=== PATIENT | male | born 1960 | race Caucasian/White ===

== ENCOUNTER 2021-11-01 14:30 | Outpatient (RCR) | payer BC, SELFPAY | END 2022-01-09 11:24 | disposition home or self-care (01) | PROVIDERS: PCP Family Medicine; Visit Provider Emergency Medicine | DX: M75.40 Impingement syndrome of unspecified shoulder (principal); Z51.89 Encounter for other specified aftercare | CPT/HCPCS: 97110; 97140; 97161 ==

== ENCOUNTER 2022-03-02 16:45 | Outpatient (RCR) | payer OTHER, BC, SELFPAY | END 2022-05-05 10:14 | disposition home or self-care (01) | PROVIDERS: PCP Family Medicine; Visit Provider Emergency Medicine | DX: M75.40 Impingement syndrome of unspecified shoulder (principal); Z51.89 Encounter for other specified aftercare | CPT/HCPCS: 97110; 97140; 97161; 97164 ==

== ENCOUNTER 2022-04-12 06:15 | Day surgery (SDC) | payer OTHER, BC, SELFPAY ==
[2022-04-12] VITALS (15 sets, daily range): BP systolic 103–121; BP diastolic 57–76; PULSE 63–69; RESP 16–18; TEMP 36.1–36.9; O2SAT 93–97; BMI 28.7
--- NOTE | 2022-04-12 06:37 | SUR.PREOP ---
Patient provided home covid negative results to RN.
[2022-04-12] MEDS: LACTATED RINGERS 1000 ML 1,000 ML 100 ML IV (07:00)
[2022-04-12] MEDS: SODIUM CHLORIDE 0.9 % (FLUSH) 10 ML SYRINGE IVF (07:00)
[2022-04-12] MEDS: EPINEPHrine 1 MG in SODIUM CHLORIDE IRRIG SOLUTION 3,000 ML 3001 MG IRRIGATION ×3 (07:10→07:50)
--- NOTE | 2022-04-12 07:25 | SUR.PREOP ---
TIME?OUT:?0729 PT/RN/MDA?VERIFICATION?OF?SURGICAL?SITE,?PROCEDURE,?AND?CONSENT OBTAINED?PRIOR?TO?INVASIVE?PROCEDURE.
[2022-04-12] MEDS: MIDAZOLAM HCL 1 MG/ML inj IVP (07:29)
[2022-04-12] MEDS: fentaNYL 100 MCG/2 ML inj IVP (07:29)
[2022-04-12] MEDS: CEFAZOLIN 2 GM in 0.9 % SODIUM CHLORIDE Mini-bag 100 ML IVPB (08:00)
--- NOTE | 2022-04-12 08:28 | W.ANESCHARGE ---
Anesthesia Charges Start Date/Time Anesthesia Start Date: 04/12/22 Anesthesia Start Time: 07:40 Stop Date/Time Anesthesia Stop Date: 04/12/22 Anesthesia Stop Time: 09:21
--- NOTE | 2022-04-12 08:59 | PM.ORPRC ---
Procedure Note Date of procedure: 04/12/22 Procedure: PREOPERATIVE DIAGNOSES: 1. Left shoulder rotator cuff tear. 2. Left shoulder subacromial impingement syndrome. POSTOPERATIVE DIAGNOSES: 1. Left shoulder rotator cuff tear - supraspinatus full-thickness far anterior portion, mild retraction 2. Left shoulder subacromial impingement syndrome. 3. Left shoulder anterior and superior labral tearing NAME OF OPERATION: 1. Left shoulder arthroscopic rotator cuff repair. 2. Left shoulder arthroscopic limited glenohumeral debridement 3. Left shoulder arthroscopic bursectomy, subacromial decompression/partial acromioplasty. SURGEON: Piyush Gordon MD [employer] CHIEF CLERK: Guillermo DAILY. Of note, a skilled assistant manager retail was critical for this case to aide in patient positioning, suture manipulation, arm positioning, instrument positioning, and closure. ANESTHESIA: General plus preoperative supraclavicular block. EBL: Less than 25 mL IMPLANTS: Arthrex 4.75 mm BioComposite SwiveLock suture anchor (x2) COMPLICATIONS: None evident INDICATIONS: The patient is a pleasant, 62-year-old male who has experienced left shoulder pain that has been increasing in recent time. Physical exam and imaging were consistent with a rotator cuff tear. Given their findings, as well as the weakness and pain, and inadequate response to nonoperative management, recommendation was made for surgery. FINDINGS: Exam under anesthesia revealed stable shoulder with excellent range of motion. The diagnostic arthroscopy revealed healthy chondral surfaces of the glenohumeral joint. The Subscapularis tendon was intact and with a healthy attachment. The long head of the biceps tendon was intact. The superior rotator cuff tendon was found to be torn full thickness at the anterior margin measuring approximately 12 mm in greatest dimension with minimal retraction. The labrum was torn in the anterior and superior aspects. The biceps anchor was still appropriate/strong. No loose bodies were identified within the pouch or subscapularis recess. PROCEDURE: Following a thorough discussion of risks, benefits, and alternatives, consent was obtained and the left shoulder was marked. The patient was brought to the operating room and placed supine on the operating table. Induction of anesthesia was completed after preoperative supraclavicular block was administered in preop holding. Appropriate time out was performed identifying proper patient, site, and procedure. 2 g IV Ancef was administered within 1 hour of incision preoperatively. The left upper extremity was prepped and draped in the appropriate sterile fashion using ChloraPrep prep. This was after the patient was positioned in the beach chair with their head in neutral alignment and all bony prominences well padded. The shoulder was insufflated with 20mL of normal saline via an 18g spinal needle from a posterior approach. An 11 blade skin incision allowed a blunt trochar to be inserted and diagnostic arthroscopy to be performed with the findings as noted above. An anterior portal was established with an outside in technique. This allowed the probe to be inserted and confirm the diagnostic arthroscopic findings. The shaver was then inserted and allowed debridement of the anterior and superior labrum. The biceps was probed and found to be stable. Following this, the upper border subscapularis was probed and found to be intact and stable. Thereafter, the subacromial space was entered. Here, a complete bursectomy and partial acromioplasty/subacromial decompression was performed with a combination of radiofrequency ablator, the shaver, and a 5.5 mm bur. Further inspection of the supraspinatus and infraspinatus rotator cuff was performed. This identified the tear as noted above. The margins of the tear were debrided, and the greater tuberosity was debrided with a combination of the apollo cautery, shaver, and bur on reverse setting. After gentle decortication, in medial 4.75 mm anchor was placed with suture tape pre loaded through the eyelet. The SutureTape tails were passed in a horizontal mattress fashion with the scorpion needle. These were brought to a single anchor further laterally with excellent reapproximation and securing of the rotator cuff. Prior to anchor trackless trolley driver removal, the eyelet sutures were tugged on for each anchor and found that the anchor had excellent stability within the bone. The shoulder was placed through range of motion and found to be stable. The rotator cuff was re-probed and found to be stable. Instruments were removed. Excess fluid was drained, closure performed with 4-0 Monocryl and Steri-Strips. Dressings were applied. Sling was applied. The patient was awoken from anesthesia and transferred to the PACU in stable condition. A skilled assistant manager retail was critical for this case to aid in patient positioning, limb positioning, skill to manipulate arthroscopic instruments and camera, suture management, patient safety, and closure. PLAN: 1. Elbow, forearm, wrist and digit range of motion of operative extremity as tolerated. 2. Encouraged ice. 3. Percocet for pain as needed. 4. Sling at all times except for ROM and showering. 5. Follow up with PA visit in 1-2 weeks for wound check. Initiate physical therapy following that visit for passive range of motion. Initiate active assisted range of motion at 3 weeks. May do pendulums now.
--- NOTE | 2022-04-12 09:15 | W.PM.NB ---
Nerve Block Nerve Block Time Seen by Provider: 07:37 Date Seen: 04/12/22 Type of block requested by surgeon for post-operative analgesia: supraclavicular Side: left Time out performed: Yes Verification of patient name: Yes Verification of date of : Yes Site marking: site marked Name of person performing procedure: Jeremy Continuous monitoring Was continuous monitoring of O2 sat, B/P, cardiac monitor technician, recorded every 15 minutes?: Yes Procedure Checklist: sterile prep, needles and gloves Ultrasound guided. Images saved: Yes Medications given in 5ml increments after negative aspiration: Ropivicaine %: 0.5 mL: 20 Needle gauge: 22 Decadron (mg): 10 Precedex (mcg): 25 Patient tolerated procedure well: Yes Block Charges Block Charge (with Pro Fee): Brachial Plexus Use of Ultrasound Machine for Block: Yes- US Guidance/pain block
--- NOTE | 2022-04-12 09:15 | W.ANESCHARGE ---
Anesthesia Charges Start Date/Time Anesthesia Start Date: 04/12/22 Anesthesia Start Time: 07:40 Stop Date/Time Anesthesia Stop Date: 04/12/22 Anesthesia Stop Time: 09:21
== END 2022-04-12 11:40 | disposition home or self-care (01) ==
PROVIDERS: PCP Family Medicine; Visit Provider Orthopaedic Surgery Sports Medicine
PROC: (CPT 29805; principal; 2022-04-12 08:00)
DX: M75.102 Unspecified rotator cuff tear or rupture of left shoulder, not specified as traumatic (principal); M75.42 Impingement syndrome of left shoulder; S43.432A Superior glenoid labrum lesion of left shoulder, initial encounter; G89.18 Other acute postprocedural pain
CPT/HCPCS: 29827; 29826; 29822; 01630; 64415; 76942; C1713; J0171; J0330; J0690; J1100; J1170; J2250; J2405; J2704; J2795; J3010; J7120; L3670

== ENCOUNTER 2022-08-22 16:00 | Outpatient (RCR) | payer OTHER, BC, SELFPAY | END 2022-11-15 10:24 | disposition home or self-care (01) | PROVIDERS: PCP Family Medicine; Visit Provider Orthopaedic Surgery Sports Medicine | DX: Z98.890 Other specified postprocedural states (principal); Z51.89 Encounter for other specified aftercare | CPT/HCPCS: 97032; 97110; 97140; 97161; 97530 ==

== ENCOUNTER 2022-10-26 09:30 | Outpatient (CLI) | payer BC, SELFPAY | END 2022-10-26 09:31 | disposition home or self-care (01) | LOC: NFLDREF 10-27 09:05 | PROVIDERS: PCP Family Medicine; Referring Provider Family Medicine; Visit Provider Family Medicine | DX: Z00.00 Encounter for general adult medical examination without abnormal findings (principal); L98.9 Disorder of the skin and subcutaneous tissue, unspecified; E78.00 Pure hypercholesterolemia, unspecified; Z12.5 Encounter for screening for malignant neoplasm of prostate | CPT/HCPCS: 80053; 80061; 84153 ==

== ENCOUNTER 2023-01-22 11:18 | Outpatient (CLI) | payer BC, SELFPAY | END 2023-01-22 11:19 | disposition home or self-care (01) | PROVIDERS: PCP Family Medicine; Visit Provider Family Medicine | DX: Z01.818 Encounter for other preprocedural examination (principal); E78.00 Pure hypercholesterolemia, unspecified | CPT/HCPCS: 80048 ==

== ENCOUNTER 2024-04-01 08:02 | Outpatient (CLI) | payer BC, SELFPAY | END 2024-04-01 08:03 | disposition home or self-care (01) | PROVIDERS: PCP Family Medicine; Visit Provider Family Medicine | DX: E78.00 Pure hypercholesterolemia, unspecified (principal); K21.9 Gastro-esophageal reflux disease without esophagitis; Z12.5 Encounter for screening for malignant neoplasm of prostate | CPT/HCPCS: 80053; 80061; G0103 ==

== ENCOUNTER 2024-09-23 09:52 | Outpatient (CLI) | payer BC, SELFPAY ==
--- NOTE | 2024-09-23 11:27 | P.ANES_ITS ---
Anesthesia Charges Start Date/Time Anesthesia Start Date: 09/23/24 Anesthesia Start Time: 10:45 Stop Date/Time Anesthesia Stop Date: 09/23/24 Anesthesia Stop Time: 11:23 Coding CPT Codes CPT Codes: ANES UPR LWR GI NDSC PX - 77882 ([id number]) P2 - PATIENT W/MILD SYST DISEASE, QZ - APRON TRIMMER SVC W/O APPLICATIONS PROGRAMMER BY
--- NOTE | 2024-09-23 11:27 | W.ANESCHARGE ---
Anesthesia Charges Start Date/Time Anesthesia Start Date: 09/23/24 Anesthesia Start Time: 10:45 Stop Date/Time Anesthesia Stop Date: 09/23/24 Anesthesia Stop Time: 11:23 Coding CPT Codes CPT Codes: ANES UPR LWR GI NDSC PX - 31031 ([id number]) P2 - PATIENT W/MILD SYST DISEASE, QZ - PRESIDENT SVC W/O SUSTAINABILITY OFFICER BY
[2024-09-23 14:11] LABS: Creatinine* 1.2 mg/dL (0.5-1.5); Estimated Glomerular Filt Rate 68 ml/min
--- NOTE | 2024-09-23 14:30 | CRLHL7_ITS ---
For Patients: As a result of the Century Cures Act, medical imaging exams and procedure reports are released immediately into your electronic medical record. You may view this report before your referring provider. If you have questions, please contact your health care provider. INDICATION: Other diseases of stomach and duodenum. TECHNIQUE: CT abdomen and pelvis acquired with 107 mL Isovue 370 IV contrast. COMPARISON: None available. FINDINGS: Lower chest: No focal consolidation. Liver: No suspicious focal hepatic lesion. Gallbladder and bile ducts: Unremarkable. Pancreas: Unremarkable. Spleen: Unremarkable. Adrenal glands: Unremarkable. Kidneys: Kidneys enhance symmetrically, without hydronephrosis. Indeterminate 1.0 cm hypodense lesion in the posterior lower pole of the left kidney (series 2, image 60). Additional too small to characterize hypodense bilateral renal lesions are noted. Retroperitoneum: No lymphadenopathy. Bowel and mesentery: Scattered colonic diverticulosis, without evidence of acute diverticulitis. 1.7 x 1.2 cm lipomatous lesion at the wall of the pylorus (series 2, image 38). Bladder: Unremarkable for degree of distention. Reproductive organs: Significant prostatomegaly. Few enhancing nodules in the transition zone. Pelvic lymph nodes: No lymphadenopathy. Vessels: Scattered atherosclerotic plaque. Abdominal wall: No acute abdominal wall abnormality. Bones: Multilevel degenerative changes of the spine. No suspicious/aggressive focal osseous lesion. IMPRESSION: 1. 1.7 x 1.2 cm lipomatous lesion within the wall of the pylorus. 2. Indeterminate 1.0 cm hypodense lesion in the posterior lower pole of the left kidney. Recommend further evaluation with renal protocol CT or MRI. 3. Prostatomegaly, with few enhancing nodules in the transition zone. Recommend correlation with serum PSA. Please note that all CT scans at this facility use dose modulation, iterative reconstruction, and/or weight-based dosing when appropriate to reduce radiation dose to as low as reasonably achievable. Dictated by Antonio Sifuentes MD @ 09/26/2024 1:14:51 PM (Electronically Signed)
== END 2024-09-23 09:53 | disposition home or self-care (01) ==
PROVIDERS: PCP Family Medicine; Visit Provider Surgery
DX: Z12.11 Encounter for screening for malignant neoplasm of colon (principal); Z86.0100 Personal history of colon polyps, unspecified; D12.2 Benign neoplasm of ascending colon; D12.3 Benign neoplasm of transverse colon; K44.9 Diaphragmatic hernia without obstruction or gangrene; K21.9 Gastro-esophageal reflux disease without esophagitis; K31.7 Polyp of stomach and duodenum; D17.5 Benign lipomatous neoplasm of intra-abdominal organs; K31.89 Other diseases of stomach and duodenum
CPT/HCPCS: 00813; 36415; 43239; 45385; 74177; 82565; 88302; 88305; J2704; J3010; Q9967

== ENCOUNTER 2024-10-10 07:06 | Outpatient (CLI) | payer BC, SELFPAY ==
--- NOTE | 2024-10-10 07:15 | CRLHL7_ITS ---
For Patients: As a result of the Cures Act, medical imaging exams and procedure reports are released immediately into your electronic medical record. You may view this report before your referring provider. If you have questions, please contact your health care provider. CLINICAL HISTORY: Renal lesion lower pole left kidney COMPARISON: CT 09/23/2024 TECHNIQUE: Valiente scale and color Doppler images were acquired of the kidneys and urinary bladder. FINDINGS: Lower pole lesion on recent CT is not appreciated on ultrasound. This may be due to overlying shadowing related to bowel gas. There is a simple cyst within the upper pole of the left kidney which measures 7 x 8 x 6 millimeters. No hydronephrosis. The right kidney measures 10.9cm in length and the left kidney measures 10.5cm in length. The renal cortex appears of normal thickness. The urinary bladder appears normal. Color Doppler images reveal a normal appearance of both ureteral jets. There is no evidence of bladder calculi or diverticula. Prevoid bladder volume 105 cc. Postvoid bladder volume 20 cc. IMPRESSION: The lesion within the lower pole of the left kidney on recent CT is not appreciated on ultrasound. Recommendations as before. Dictated by Isidro Cotton MD @ 10/10/2024 8:16:45 AM (Electronically Signed)
== END 2024-10-10 07:07 | disposition home or self-care (01) ==
LOC: US 07:08
PROVIDERS: PCP Family Medicine; Visit Provider Family Medicine
DX: N28.89 Other specified disorders of kidney and ureter (principal)
CPT/HCPCS: 76770

== ENCOUNTER 2024-10-10 07:55 | Outpatient (CLI) | payer BC, SELFPAY | END 2024-10-10 07:56 | disposition home or self-care (01) | LOC: NFLDREF 10-14 17:32 | PROVIDERS: PCP Family Medicine; Referring Provider Family Medicine; Visit Provider Family Medicine | DX: N42.9 Disorder of prostate, unspecified (principal) | CPT/HCPCS: 84153; 84154 ==

== ENCOUNTER 2024-10-29 14:03 | Outpatient (CLI) | payer BC, SELFPAY ==
--- NOTE | 2024-10-29 14:00 | CRLHL7_ITS ---
For Patients: As a result of the Cures Act, medical imaging exams and procedure reports are released immediately into your electronic medical record. You may view this report before your referring provider. If you have questions, please contact your health care provider. INDICATION: Indeterminate lesion left kidney seen on the previous CT 09/23/2024; further assessment. COMPARISON: CT abdomen and pelvis with and without contrast September 23, 2024. Ultrasound examination of the kidneys 10/10/2024 TECHNIQUE: CT abdomen without intravenous contrast; CT abdomen with intravenous contrast during the arterial and venous phase imaging; coronal and sagittal reformats; maximum intensity projections; contrast was injected IV. FINDINGS: A 1.2 x 1 cm lesion identified in the interpolar region posterior aspect left kidney with a defect in the renal cortex on the unenhanced study, hypo enhancing lesion on the post-contrast imaging with 13 Hounsfield unit enhancement from the precontrast study. Smaller cortical cysts upper pole left kidney and lower pole right kidney. Mild diffuse fatty infiltration of the liver. No focal hepatic or splenic pathology. No pancreatic pathology. Gallbladder appears unremarkable. No adrenal pathology. No retroperitoneal lymphadenopathy. Impression : 1. A 1.2 x 1 cm lesion posterior interpolar left kidney with enhancement of 13 Hounsfield units postcontrast administration; this was not visualized on the ultrasound study of the kidney dated October 10, 2024; suggest obtaining an MRI of the kidneys without and with intravenous contrast for further assessment. 2. Simple cortical cysts both kidneys. 3. Mild diffuse fatty infiltration of the liver. Please note that all CT scans at this facility use dose modulation, iterative reconstruction, and/or weight-based dosing when appropriate to reduce radiation dose to as low as reasonably achievable. Dictated by Oliver Daley MD @ 10/30/2024 11:25:17 AM (Electronically Signed)
[2024-10-29 14:46] LABS: Creatinine* 1.0 mg/dL (0.5-1.5); Estimated Glomerular Filt Rate 85 ml/min
== END 2024-10-29 14:04 | disposition home or self-care (01) ==
LOC: CT 14:03
PROVIDERS: PCP Family Medicine; Visit Provider Family Medicine
DX: N28.89 Other specified disorders of kidney and ureter (principal); N28.1 Cyst of kidney, acquired; K76.0 Fatty (change of) liver, not elsewhere classified
CPT/HCPCS: 36415; 74170; 82565; Q9967

== ENCOUNTER 2024-11-13 12:54 | Outpatient (CLI) | payer BC, SELFPAY ==
--- NOTE | 2024-11-13 13:00 | CRLHL7_ITS ---
For Patients: As a result of the Century Cures Act, medical imaging exams and procedure reports are released immediately into your electronic medical record. You may view this report before your referring provider. If you have questions, please contact your health care provider. INDICATION: Left renal lesion. COMPARISON: CT scans of the abdomen and pelvis dated 29 October 2024 and 23 September 2024. TECHNIQUE: Abdominal MRI with T1 in- and out of phase, T2, diffusion weighted, and progressively delayed post-contrast images. Intravenous gadolinium administered. FINDINGS: No fatty infiltration of the liver. No focal abnormalities identified in the visualized portions of the liver, spleen, pancreas, and adrenal glands. 1.0 cm cyst containing hemorrhagic debris in the posterior aspect of the lower pole of the left kidney corresponds to the finding on the previous CT scan. A few other small cysts in the kidneys. The kidneys are otherwise unremarkable. No hydronephrosis. No adenopathy. Impression : 1. 1.0 cm cyst containing hemorrhagic debris in the lower pole of the left kidney. A few other small cysts in the kidneys. 2. No suspicious enhancing renal lesions identified. Dictated by Arnulfo Rios MD @ 11/14/2024 3:43:58 PM (Electronically Signed)
== END 2024-11-13 12:55 | disposition home or self-care (01) ==
LOC: MRI 12:55
PROVIDERS: PCP Family Medicine; Visit Provider Family Medicine
DX: N28.89 Other specified disorders of kidney and ureter (principal); N28.1 Cyst of kidney, acquired
CPT/HCPCS: 74183; A9575

== ENCOUNTER 2025-01-30 13:45 | Outpatient (CLI) | payer BC, SELFPAY ==
--- NOTE | 2025-01-30 14:00 | CRLHL7_ITS ---
For Patients: As a result of the Century Cures Act, medical imaging exams and procedure reports are released immediately into your electronic medical record. You may view this report before your referring provider. If you have questions, please contact your health care provider. Indication: Left lump on neck, present for approx. 3-4 weeks, lump is tender Technique: Grayscale and color Doppler ultrasound of the left neck soft tissues performed in the area of concern Comparison: None Findings: There is a hypoechoic solid mass with internal color flow which measures 5.1 x 2.4 x 4.2 cm. Impression: Suspicious hypoechoic vascular solid mass measures 5.[address] soft tissue neck recommended. Dictated by Isidro Cotton MD @ 01/30/2025 2:36:56 PM (Electronically Signed)
== END 2025-01-30 13:46 | disposition home or self-care (01) ==
LOC: US 13:46
PROVIDERS: PCP Family Medicine; Visit Provider Family Medicine
DX: R22.1 Localized swelling, mass and lump, neck (principal); M79.9 Soft tissue disorder, unspecified
CPT/HCPCS: 76536

== ENCOUNTER 2025-02-03 09:30 | Outpatient (CLI) | payer BC, SELFPAY ==
--- NOTE | 2025-02-03 10:00 | CRLHL7_ITS ---
For Patients: As a result of the 21st Century Cures Act, medical imaging exams and procedure reports are released immediately into your electronic medical record. You may view this report before your referring provider. If you have questions, please contact your health care provider. INDICATION: LUMP ON LEFT SIDE OF NECK. NOTICED 1 MONTH AGO. STARTING TO FEEL PRESSURE ON THROAT WHEN EATING COMPARISON: Ultrasound 01/30/2025 TECHNIQUE: A CT volumetric acquisition was performed of the neck during intravenous infusion of 101CC ISOVUE 370 nonionic intravenous contrast. Please note that all CT scans at this facility use dose modulation, iterative reconstruction, and/or weight-based dosing when appropriate to reduce radiation dose to as low as reasonably achievable. FINDINGS: The CT images demonstrate normal aeration of the mastoid air cells and middle ear cavities. The paranasal sinuses are clear. The nasopharynx appears normal. The parotid and submandibular glands are of normal size and have uniform enhancement. Large circumscribed lobular mass is present within the left side of the pharynx in the subglottis space which measures 3.2 x 4.6 cm. Involvement of the left vallecula noted. Larynx appears normal. Retropharyngeal soft tissues unremarkable. Bulky heterogeneous lymph node is present at level 2 which measures 4.9 cm. This was previously imaged on ultrasound. Sub cm left thyroid lobe nodules noted, considered incidental. 2 millimeter nodule within the right upper lobe, . Degenerative disc disease C5-6. 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 Associated narrowing of the adjacent IVC without thrombus. ENT referral recommended. 2 millimeter right upper lobe pulmonary nodule. Please note that all CT scans at this facility use dose modulation, iterative reconstruction, and/or weight-based dosing when appropriate to reduce radiation dose to as low as reasonably achievable. Dictated by Isidro Cotton MD @ 02/03/2025 10:59:16 AM (Electronically Signed)
[2025-02-03 10:02] LABS: Creatinine* 1.0 mg/dL (0.5-1.5); Estimated Glomerular Filt Rate 85 ml/min
== END 2025-02-03 09:31 | disposition home or self-care (01) ==
LOC: CT 09:31
PROVIDERS: PCP Family Medicine; Visit Provider Family Medicine
DX: M79.9 Soft tissue disorder, unspecified (principal); R91.8 Other nonspecific abnormal finding of lung field
CPT/HCPCS: 36415; 70491; 82565; Q9967